=== PATIENT | female | born 1960 | race Caucasian/White ===

== ENCOUNTER → 2017-09-17 | Outpatient (CLI) | payer BC ==
--- NOTE | 2017-09-19 08:23 | MM ---
Reason for exam: screening (asymptomatic). Last mammogram was performed 1 year and 3 months ago. History: Patient is nulliparous. Took hormonal contraceptives for 17 years 2 months beginning at age 34. Physical Findings: A clinical breast exam by your physician is recommended on an annual basis and results should be correlated with mammographic findings. MG Screening Mammo w CAD Bilateral CC and MLO view(s) were taken. Prior study comparison: June 18, 2016, bilateral MG screening mammo w CAD. January 06, 2014, bilateral digital screening mammo w/CAD. There are scattered fibroglandular densities. There is no discrete abnormality. No significant changes when compared with prior studies. ASSESSMENT: Negative, BI-RAD 1 RECOMMENDATION: Routine screening mammogram of both breasts in 1 year.
== END | disposition home or self-care (01) ==
LOC: RADMAMWWP 16:46
PROVIDERS: ATTEND Obstetrics & Gynecology
DX: Z12.31 Encounter for screening mammogram for malignant neoplasm of breast (principal)

== ENCOUNTER → 2019-03-04 | Outpatient (CLI) | payer BC ==
--- NOTE | 2019-03-04 15:22 | BD ---
EXAMINATION TYPE: Axial Bone Density DATE OF EXAM: 03/04/2019 COMPARISON: NONE CLINICAL HISTORY: Postmenopausal female. Osteoporosis screening. Height: 68 IN Weight: 271 LBS FRAX RISK QUESTIONS: Family History (Parent hip fracture): YES MOTHER RISK FACTORS HISTORY OF: Active: YES Postmenopausal woman: AGE 55 MEDICATIONS: Thyroid Medications: YES Which medication: Levothyroxine How Lon+ YEARS Additional Medications: LEVOTHYROXINE, MULTI VIT, SINGULAIR, CLARITIN, EXAM MEASUREMENTS: Bone mineral densitometry was performed using the Gab[employer] System. Bone mineral density as measured about the Lumbar spine is: ----- L1-L4(G/cm2): 1.373 T Score Values are as follows: ----- L2: 1.5 ----- L3: 2.5 ----- L4: 1.6 ----- L1-L4: 1.6 Bone mineral density BASELINE Bone mineral density about the R hip (g/cm2): 1.010 Bone mineral density about the L hip (g/cm2): 0.936 T Score values are as follows: -----R Neck: -0.2 -----L Neck: -0.7 -----R Total: 0.2 -----L Total: -0.1 Bone mineral density BASELINE IMPRESSION: Normal (Values between +1 and -1 indicate normal bone mass). Consider repeating this study in 5 year s or sooner if there is some new clinical indication. NOTE: T-SCORE=SD OF THE YOUNG ADULT MEAN.
--- NOTE | 2019-03-05 10:47 | MM ---
Reason for exam: screening (asymptomatic). Last mammogram was performed 1 year and 6 months ago. History: Patient is postmenopausal and is nulliparous. Took hormonal contraceptives for 17 years 2 months beginning at age 34. Physical Findings: A clinical breast exam by your physician is recommended on an annual basis and results should be correlated with mammographic findings. MG Screening Mammo w CAD Bilateral CC, MLO, and XCCL view(s) were taken. Prior study comparison: September 17, 2017, bilateral MG screening mammo w CAD. June 18, 2016, bilateral MG screening mammo w CAD. There are scattered fibroglandular densities. No suspicious abnormality. No significant changes when compared with prior studies. ASSESSMENT: Negative, BI-RAD 1 RECOMMENDATION: Routine screening mammogram of both breasts in 1 year.
== END | disposition home or self-care (01) ==
LOC: RADBDWWP 09:51
PROVIDERS: ATTEND Obstetrics & Gynecology
DX: Z12.31 Encounter for screening mammogram for malignant neoplasm of breast (principal); Z13.820 Encounter for screening for osteoporosis; N95.1 Menopausal and female climacteric states
CPT/HCPCS: 77067; 77080

== ENCOUNTER → 2023-10-08 | Outpatient (CLI) | payer BC ==
--- NOTE | 2023-10-09 08:56 | MM ---
Reason for Exam: Screening (asymptomatic). Last mammogram was performed 4 year(s) and 7 month(s) ago. Patient History: Menarche at age 15. Patient has no children. Postmenopausal. Hormonal Contraceptives, starting at age 34 for 17 years, 2 months. Risk Values: Faviola 5 year model risk: 1.6%. NCI Lifetime model risk: 7.9%. Prior Study Comparison: 06/18/2016 Bilateral Screening Mammogram, [facility]. 09/17/2017 Bilateral Screening Mammogram, [facility]. 03/04/2019 Bilateral Screening Mammogram, [facility]. Tissue Density: The breast tissue is almost entirely fat. Findings: Analyzed By CAD. There is no suspicious group of microcalcifications or new suspicious mass. Overall Assessment: Negative, BI-RAD 1 Management: Screening Mammogram of both breasts in [address] [facility] will attempt to contact patient to return for supplemental views and ultrasound if indicated. Patient should continue monthly self-breast exams. A clinical breast exam by your physician is recommended on an annual basis. This exam should not preclude additional follow-up of suspicious palpable abnormalities. Note on Faviola scores and lifetime risk: 1. A Faviola score greater than 3% is considered moderate risk. If this is the case, consider specialist referral to assess eligibility for a risk reducing agent. 2. If overall lifetime risk for the development of breast cancer is 20% or higher, the patient may qualify for future screening with alternating mammogram and breast MRI. Electronically signed and approved by: Tyree Mendez DO
== END | disposition home or self-care (01) ==
LOC: RADMAMWWP 08:10
PROVIDERS: ATTEND Obstetrics & Gynecology
DX: Z12.31 Encounter for screening mammogram for malignant neoplasm of breast (principal); Z78.0 Asymptomatic menopausal state
CPT/HCPCS: 77063; 77067

== ENCOUNTER → 2024-10-30 | Outpatient (CLI) | payer BC ==
--- NOTE | 2024-11-02 08:07 | MM ---
Reason for Exam: Screening (asymptomatic). Last mammogram was performed 1 year(s) and 1 month(s) ago. Patient History: Menarche at age 15. Patient has no children. Postmenopausal. Hormonal Contraceptives, starting at age 34 for 17 years, 2 months. Risk Values: Faviola 5 year model risk: 1.7%. NCI Lifetime model risk: 7.7%. Prior Study Comparison: 09/17/2017 Bilateral Screening Mammogram, [facility]. 03/04/2019 Bilateral Screening Mammogram, [facility]. 10/08/2023 Bilateral MG 3D screening mammo w/cad, [facility]. Tissue Density: There are scattered areas of fibroglandular density. Findings: Analyzed By CAD. There is no suspicious group of microcalcifications or new suspicious mass in either breast. Chronic nodularity right breast stable. Overall Assessment: Benign, BI-RAD 2 Management: Screening Mammogram of both breasts in 1 year. . Patient should continue monthly self-breast exams. A clinical breast exam by your physician is recommended on an annual basis. This exam should not preclude additional follow-up of suspicious palpable abnormalities. Note on Faviola scores and lifetime risk: 1. A Faviola score greater than 3% is considered moderate risk. If this is the case, consider specialist referral to assess eligibility for a risk reducing agent. 2. If overall lifetime risk for the development of breast cancer is 20% or higher, the patient may qualify for future screening with alternating mammogram and breast MRI. [facility], , 11/02/2024 8:03 AM. Electronically signed and approved by: Johnny Wetzel M.D. [facility]
== END | disposition home or self-care (01) ==
LOC: RADMAMWWP 13:16
PROVIDERS: ATTEND Family Medicine
DX: Z12.31 Encounter for screening mammogram for malignant neoplasm of breast (principal); R92.323 Mammographic fibroglandular density, bilateral breasts; Z78.0 Asymptomatic menopausal state
CPT/HCPCS: 77063; 77067